=== PATIENT | male | born 1985 | race Caucasian/White ===

== ENCOUNTER → 2016-12-24 | Day surgery (SDC) | payer OTHER ==
[~2016-12-24] VITALS: Ht 193 cm; Wt 91.3 kg
[~2016-12-24] MED LIST: PRILOSEC20 MG PO; PROVENTIL OR V6.7 GM INH; [UNRECOGNIZED DRUG - OTHER] PO
== END ==
LOC: GPOC 12-17 10:00 → GEND 06:54 → GPOC 10:00
PROC: 0DB58ZX Excision of Esophagus, Via Natural or Artificial Opening Endoscopic, Diagnostic (ICD-10-PCS; principal; 2016-12-24)
PROC: 0DBH8ZX Excision of Cecum, Via Natural or Artificial Opening Endoscopic, Diagnostic (ICD-10-PCS; 2016-12-24)
DX: K63.5 Polyp of colon (principal); K44.9 Diaphragmatic hernia without obstruction or gangrene; K64.4 Residual hemorrhoidal skin tags; K21.9 Gastro-esophageal reflux disease without esophagitis; M19.90 Unspecified osteoarthritis, unspecified site; F41.9 Anxiety disorder, unspecified; F32.9 Major depressive disorder, single episode, unspecified; Z79.899 Other long term (current) drug therapy
CPT/HCPCS: J2001; J7030